=== PATIENT | female | born 1985 | race Hispanic/Latino ===

== ENCOUNTER 2017-01-28 15:09 | Emergency (ER) | payer BC ==
[2017-01-28] MEDS ORDERED: Triamcinolone Acetonide 40 MG/ML 1 ML MDV ONE ×3 (16:17→17:15)
[2017-01-28] MEDS ORDERED: Lidocaine 2% 5 ML SDV ONE ×2 (17:15)
[2017-01-28] MEDS ORDERED: Bupivacaine 0.5% 10 ML SDV ONE ×2 (17:15)
[2017-01-28 18:41] VITALS: BP 148/92
--- NOTE | 2017-01-29 11:37 | EDM.PDOC ---
ED HPI LOWER BACK PAIN/INJURY - General Chief Complaint: Back Pain or Injury Stated Complaint: BACK PAIN Time Seen by Provider: 01/28/17 18:00 Source: Reports: Patient History Limitations: Reports: No limitations - History of Present Illness INITIAL COMMENTS - FREE TEXT/NARRATIVE: This is a 31yo F here for severe lower back pain. Patient states it feels like a tight painful band across the lower back. Patient states she has had this pain before but this recent episode has been unbearable. Timing/Duration: Reports: Hour(s): Location: Reports: lower, paraspinal Quality: Reports: Same as previous episode Severity: severe Improves with: Reports: None Worsens with: Reports: None - Related Data Allergies/ADRs: Allergies Allergy/AdvReac Type Severity Reaction Status Date / Time No Known Allergies Allergy Verified 01/28/17 18:41 Home Meds: Home Meds NK [No Known Home Meds] 01/28/17 [History] Past Medical History - Past Health History Medical/Surgical History: Denies Medical/Surgical History Other OB/BYN History: no complications with 2 other pregnancies. Full term Social & Family History - Tobacco Use Smoking Status *Q: Former Smoker Years of Tobacco use: 16 Used Tobacco, but Quit: No Month Tobacco Last Used: 11/2014 Second Hand Smoke Exposure: No - Alcohol Use Days Per Week of Alcohol Use: 0 - Recreational Drug Use Recreational Drug Use: No ED ROS GENERAL - Review of Systems Review Of Systems: ROS reveals no pertinent complaints other than HPI. ED EXAM,LOWER BACK PAIN/INJURY - Physical Exam Exam: See Below Exam Limited By: No limitations General Appearance: alert, WD/WN, moderate distress Eye Exam: bilateral eye: PERRL Ears: normal external exam Nose: normal inspection Throat/Mouth: Normal inspection Respiratory/Chest: no respiratory distress, lungs clear Cardiovascular: normal peripheral pulses, regular rate, rhythm Back Exam: muscle spasm, paraspinal tenderness Neurological: alert, normal mood/affect, normal dorsiflexion, CN II-XII intact, normal plantar flexion, normal gait, normal reflexes, no motor/sensory deficits , oriented x 3 Psychiatric: normal affect, normal mood Skin Exam: Warm, Dry, Intact ED LACERATION/WOUND PROCEDURES - Additional/Other Procedure(s) Other (Free Text) Procedure(s): Trigger point injections done. 2-2-2-27 ga x2 were done in 2 locations of point tenderness - first located mid lower right of back and second at left lower hip area.No complications. Patient tolerated procedure well and noticed improved pain within minutes. Course - Vital Signs Last Recorded V/S: Last Vital Signs Temp 37.0 C 01/28/17 18:39 Pulse 92 01/28/17 18:39 Resp 18 01/28/17 18:39 BP 148/92 H 01/28/17 18:39 Pulse Ox 98 01/28/17 18:39 - Orders/Labs/Meds Meds: Medications Discontinued Medications Generic Name Dose Route Start Last Admin Trade Name Montserrat PRN Reason Stop Dose Admin Bupivacaine HCl 10 ml 01/28/17 17:15 Sensorcaine-Mpf 0.5% .ROUTE 01/28/17 17:16 .STK-MED ONE Bupivacaine HCl 10 ml 01/28/17 17:15 Sensorcaine-Mpf 0.5% .ROUTE 01/28/17 17:16 .STK-MED ONE Lidocaine 5 ml 01/28/17 17:15 Xylocaine-Mpf 2% .ROUTE 01/28/17 17:16 .STK-MED ONE Lidocaine 5 ml 01/28/17 17:15 Xylocaine-Mpf 2% .ROUTE 01/28/17 17:16 .STK-MED ONE Triamcinolone Acetonide Confirm 01/28/17 16:17 Kenalog-40 Administered 01/28/17 16:18 Dose 160 mg .ROUTE .STK-MED ONE Triamcinolone Acetonide 80 mg 01/28/17 17:15 Kenalog-40 .ROUTE 01/28/17 17:16 .STK-MED ONE Triamcinolone Acetonide 80 mg 01/28/17 17:15 Kenalog-40 .ROUTE 01/28/17 17:16 .STK-MED ONE Departure - Departure Time of Disposition: 20:00 Disposition: Home, Self-Care 01 Condition: good Clinical Impression: Lower back pain Qualifiers: Chronicity: acute Back pain laterality: bilateral Sciatica presence: without sciatica Qualified Code(s): M54.5 - Low back pain Referrals: PCP,Unknown [Primary Care Provider] - - Problem List Review Problem List Initiated/Reviewed/Updated: Yes - Assessment/Plan Plan: Counseled on f/u in clinic and recheck in clinic as needed.
== END 2017-01-28 18:40 | disposition home or self-care (01) ==
LOC: LB.ED 15:09
DX: M54.5 Low back pain (principal); Z87.891 Personal history of nicotine dependence
CPT/HCPCS: 20552; 99283; J3301

== ENCOUNTER 2017-06-02 10:36 | Emergency (ER) | payer BC ==
--- NOTE | 2017-06-02 11:26 | EDM.PDOC ---
ED HPI GENERAL MEDICAL PROBLEM - General Chief Complaint: General Stated Complaint: left sided pain Time Seen by Provider: 06/02/17 11:00 Source of Information: Reports: Patient History Limitations: Reports: No Limitations - History of Present Illness INITIAL COMMENTS - FREE TEXT/NARRATIVE: According to patient she has been having pain in the left side of the abdomen for since last thursday. Pain is dull achy type and is asoo with movement of the back, twisting or bending.Pain rated around 4-5/10. Pain has got better slightly, but has not resolved. No fever or chills, No nausea or vomiting, No pain or bloating of the abdomen. No diarrhea or constipation. No dyspepsia symptoms.She has a normal bowel movement today. Apparently week ago, it started after they made a quick 3 days trip to [place] and back. There was no trauma, but she was sitting in the car for long hrs. Duration: Week(s): (1), Improving Location: Reports: Abdomen Quality: Reports: Dull Severity: Mild Improves with: Reports: Rest Worsens with: Reports: Movement Associated Symptoms: Denies: Confusion, Cough, Diaphoresis, Fever/Chills, Headaches, Nausea/Vomiting, Rash, Shortness of Breath, Weakness - Related Data Allergies Allergy/AdvReac Type Severity Reaction Status Date / Time No Known Allergies Allergy Verified 01/28/17 18:41 Home Meds: Home Meds NK [No Known Home Meds] 01/28/17 [History] Past Medical History - Past Health History Medical/Surgical History: Denies Medical/Surgical History Other OB/BYN History: no complications with 2 other pregnancies. Full term Social & Family History - Tobacco Use Smoking Status *Q: Former Smoker Years of Tobacco use: 16 Used Tobacco, but Quit: No Month Tobacco Last Used: 11/2014 Second Hand Smoke Exposure: No - Alcohol Use Days Per Week of Alcohol Use: 0 - Recreational Drug Use Recreational Drug Use: No ED ROS GENERAL - Review of Systems Review Of Systems: See Below Constitutional: Denies: Fever, Chills, Night Sweats, Diaphoresis HEENT: Denies: Rhinitis, Sinus Problem, Throat Pain, Throat Swelling Respiratory: Denies: Cough, Sputum Cardiovascular: Denies: Chest Pain, Lightheadedness GI/Abdominal: Reports: Abdominal Pain. Denies: Nausea, Vomiting : Denies: Dysuria, Frequency Musculoskeletal: Denies: Back Pain, Joint Pain, Joint Swelling, Muscle Stiffness Skin: Denies: Bruising, Pruritis, Rash ED EXAM, GENERAL - Physical Exam Exam: See Below Exam Limited By: No Limitations General Appearance: Alert, WD/WN, No Apparent Distress Eye Exam: Bilateral Eye: EOMI, PERRL Ears: Normal External Exam, Normal Canal, Hearing Grossly Normal, Normal TMs Ear Exam: Bilateral Ear: Auricle Normal, Canal Normal, TM normal Nose: Normal Inspection, Normal Mucosa, No Blood Throat/Mouth: Normal Inspection, Normal Lips, Normal Teeth, Normal Gums, Normal Oropharynx, Normal Voice, No Airway Compromise Head: Atraumatic, Normocephalic Neck: Normal Inspection, Supple, Non-Tender, Full Range of Motion Respiratory/Chest: No Respiratory Distress, Lungs Clear, Normal Breath Sounds, No Accessory Muscle Use, Chest Non-Tender Cardiovascular: Normal Peripheral Pulses, Regular Rate, Rhythm, No Edema, No Gallop, No JVD, No Murmur, No Rub GI/Abdominal: Normal Bowel Sounds, Soft, No Organomegaly, No Distention, No Abnormal Bruit, No Mass, Tender (Pt has mild tenderness to palaption along the left costal margin and also along the left ilaic crest. no swelling or brusing of the skin noted. noaml deep palpation of the abdomen.). No: Guarding, Rigid, Rebound Course - Vital Signs Text/Narrative:: Pt's CBC appears normal. She is tender along the left costal margin and left iliac crest, along the attachments of the abdominal wall muscles. Apparently it could be the strain to the abdominal muscles from her long quick trip to [place], which has strained the muscles. She does claim that pain is improving slightly. She does not have any signs or symptoms of acute abdomen. I have advised her intermittent heat to the lower chest and lower abdomen 2-3 times daily. Motrin 600-800mg 3 times daily. Avoid twisting or bending activity until the pain resolves. Followup in clinic if pain persist. Last Recorded V/S: Last Vital Signs Temp 98.2 F 06/02/17 11:33 Pulse 73 06/02/17 11:33 Resp 16 06/02/17 11:33 BP 122/70 06/02/17 11:33 Pulse Ox 100 06/02/17 11:33 - Orders/Labs/Meds Labs: Laboratory Tests 06/02/17 Range/Units 11:19 WBC 9.8 D (4.0-11.0) K/uL RBC 4.42 (3.80-5.80) M/uL Hgb 13.3 (11.5-16.5) g/dL Hct 40.0 (37.0-47.0) % MCV 91 (76-96) fL MCH 30.1 (27.0-32.0) pg MCHC 33.3 (31.0-35.0) g/dL RDW 13.1 (11.0-16.0) % Plt Count 248 (150-500) K/uL MPV 9.8 (6.0-10.0) fL Neut % (Auto) 72.6 H (45.0-70.0) % Lymph % (Auto) 20.6 (20.0-40.0) % Baxter % (Auto) 5.3 (3.0-10.0) % Eos % (Auto) 1.2 (1.0-5.0) % Baso % (Auto) 0.3 (0.0-0.5) % Neut # (Auto) 7.11 (2.00-7.50) K/uL Lymph # (Auto) 2.02 (1.50-4.00) K/uL Baxter # (Auto) 0.52 (0.20-0.80) K/uL Eos # (Auto) 0.12 (0.04-0.40) K/uL Baso # (Auto) 0.03 (0.02-0.10) K/uL Departure - Departure Time of Disposition: 12:00 Disposition: Home, Self-Care 01 Condition: Good Clinical Impression: Abdominal wall pain in left flank - Discharge Information Referrals: PCP,None [Primary Care Provider] - Forms: ED Department Discharge Additional Instructions: Pt reassured that this is abdominal wall pain form strain to the wall muscles. I have advised her intermittent heat to the lower chest and lower abdomen 2-3 times daily. Motrin 600-800mg 3 times daily. Avoid twisting or bending activity until the pain resolves. Followup in clinic if pain persist. - Problem List & Annotations (1) Abdominal wall pain in left flank SNOMED Code(s): 586521448 Code(s): R10.9 - UNSPECIFIED ABDOMINAL PAIN Status: Acute Current Visit: Yes - Problem List Review Problem List Initiated/Reviewed/Updated: Yes - Assessment/Plan Assessment:: Left sided abdominal wall pain Plan: Pt's CBC appears normal. She is tender along the left costal margin and left iliac crest, along the attachments of the abdominal wall muscles. Apparently it could be the strain to the abdominal muscles from her long quick trip to [place], which has strained the muscles. She does claim that pain is improving slightly. She does not have any signs or symptoms of acute abdomen. I have advised her intermittent heat to the lower chest and lower abdomen 2-3 times daily. Motrin 600-800mg 3 times daily. Avoid twisting or bending activity until the pain resolves. Followup in clinic if pain persist.
[2017-06-02 11:35] VITALS: BP 122/70
== END 2017-06-02 12:02 | disposition home or self-care (01) ==
LOC: LB.ED 10:36
DX: R10.9 Unspecified abdominal pain (principal); Z87.891 Personal history of nicotine dependence
CPT/HCPCS: 36415; 85025; 99284

== ENCOUNTER 2017-09-23 19:42 | Emergency (ER) | payer BC ==
[2017-09-23 20:09] VITALS: BP 131/92
[2017-09-23] MEDS ORDERED: Cyclobenzaprine 10 MG Tab ONE (20:10)
[2017-09-23] MEDS ORDERED: Ketorolac 60 MG/2 ML SDV IM ONE (20:16)
[2017-09-23] MEDS ORDERED: Ketorolac 60 MG/2 ML SDV ONE (20:19)
--- NOTE | 2017-09-23 20:30 | EDM.PDOC ---
ED HPI GENERAL MEDICAL PROBLEM - General Chief Complaint: General Stated Complaint: PAIN Time Seen by Provider: 09/23/17 20:05 Source of Information: Reports: Patient History Limitations: Reports: No Limitations - History of Present Illness INITIAL COMMENTS - FREE TEXT/NARRATIVE: According to patient she has been having whole body pain since today evening. Pain is dull achy type and hurts to deep touch too. No tingling or numbness. No nausea or vomiting. Pt claims she generally take one tablet of flexeril and sometimes pain resolves, but today it did not resolve and hence she came into emergency room. No fever or chills. No URI symptoms. Pt claims she does have chronic pain in her muscles and body for a while. She has been worked for this by Dr. Barkley and she has also seen Dr. Roy the neurologist at [facility]. Had MRI of the brain and back which are normal. Severity: Moderate Improves with: Reports: None Worsens with: Reports: None Associated Symptoms: Reports: Headaches. Denies: Confusion, Chest Pain, Cough, Diaphoresis, Fever/Chills, Malaise, Nausea/Vomiting, Rash, Seizure, Shortness of Breath, Weakness Headache Pain Score (Numeric/FACES): 8 Lower Extremities Pain Score (Numeric/FACES): 8 - Related Data Allergies Allergy/AdvReac Type Severity Reaction Status Date / Time bee venom protein (honey bee) Allergy Anaphylactic Verified 09/23/17 20:05 Shock cat dander Allergy Anaphylactic Verified 09/23/17 20:05 Shock Home Meds: Home Meds Acetaminophen/HYDROcodone [[place] 325-5 MG] 1 tab PO Q6H PRN 09/23/17 [History] Cyclobenzaprine [Flexeril] 10 mg PO DAILY PRN 09/23/17 [History] Omeprazole 20 mg PO ACBREAKFAST 09/23/17 [History] Past Medical History - Past Health History Medical/Surgical History: Denies Medical/Surgical History Other OB/BYN History: no complications with 2 other pregnancies. Full term Social & Family History - Tobacco Use Smoking Status *Q: Former Smoker Years of Tobacco use: 16 Packs/Tins Daily: 0 Used Tobacco, but Quit: No Month Tobacco Last Used: 11/2014 Second Hand Smoke Exposure: No - Caffeine Use Caffeine Use: Reports: Coffee, Energy Drinks - Alcohol Use Days Per Week of Alcohol Use: 0 - Recreational Drug Use Recreational Drug Use: No ED ROS GENERAL - Review of Systems Review Of Systems: See Below Constitutional: Denies: Fever, Chills, Malaise, Weakness HEENT: Denies: Rhinitis, Sinus Problem, Throat Pain Respiratory: Denies: Cough, Sputum Cardiovascular: Denies: Chest Pain, Lightheadedness GI/Abdominal: Denies: Abdominal Pain, Nausea, Vomiting Musculoskeletal: Reports: Arm Pain, Back Pain, Hand Pain, Leg Pain, Foot Pain, Muscle Pain. Denies: Joint Pain, Joint Swelling, Muscle Stiffness Skin: Denies: Bruising, Pruritis, Rash Neurological: Denies: Confusion, Dizziness, Headache, Numbness, Syncope, Tingling ED EXAM, GENERAL - Physical Exam Exam: See Below Exam Limited By: No Limitations General Appearance: Alert, WD/WN, No Apparent Distress Eye Exam: Bilateral Eye: EOMI, PERRL Ears: Normal External Exam Ear Exam: Bilateral Ear: Auricle Normal, Canal Normal, TM normal Nose: Normal Inspection, Normal Mucosa, No Blood Throat/Mouth: Normal Inspection, Normal Lips, Normal Teeth, Normal Gums, Normal Oropharynx, Normal Voice, No Airway Compromise Head: Atraumatic, Normocephalic Neck: Normal Inspection, Supple, Non-Tender, Full Range of Motion Respiratory/Chest: No Respiratory Distress, Lungs Clear, Normal Breath Sounds, No Accessory Muscle Use, Chest Non-Tender Cardiovascular: Normal Peripheral Pulses, Regular Rate, Rhythm, No Edema, No Gallop, No JVD, No Murmur, No Rub GI/Abdominal: Normal Bowel Sounds, Soft, Non-Tender, No Organomegaly, No Distention, No Abnormal Bruit, No Mass Back Exam: Normal Inspection, Full Range of Motion. No: Paraspinal Tenderness, Vertebral Tenderness Extremities: Normal Inspection, Normal Range of Motion, Non-Tender, Normal Capillary Refill, No Pedal Edema Neurological: Alert, Oriented, CN II-XII Intact, Normal Cognition, Normal Gait, Normal Reflexes, No Motor/Sensory Deficits, Other (Pt has increased pain response to deep touch all over the body.) Skin Exam: Warm, Intact Course - Vital Signs Text/Narrative:: Pt appears like she has chronic muscle pain or soft tissue pain, as she hurts to deep palpation of the soft tissue of the extremities and the trunk. no skin warmth. Her CBC is normal. She has been to Neurologist and has had MRI of the back and head which were normal. She did receive toradol 60mg in the emergency room. Advised to go home and rest. She was given flexeril from the emergency room to use at bedtime as needed for her muscle aches. Advised massage and heat to the area of pain. She claims she has made appointment with Neurologist at [facility] coming up. Advised to keep the appointment.Also advised to followup with Dr. Barkley next week. Last Recorded V/S: Last Vital Signs Temp 98.6 F 09/23/17 20:00 Pulse 113 H 09/23/17 20:00 Resp 20 09/23/17 20:00 BP 131/92 H 09/23/17 20:00 Pulse Ox 98 09/23/17 20:00 - Orders/Labs/Meds Orders: Active Orders 24 hr Category Date Time Status CBC WITH AUTO DIFF [HEME] Stat Lab 09/23/17 20:10 Ordered Ketorolac [Toradol] Med 09/23/17 20:16 Once 60 mg IM ONETIME ONE Departure - Departure Time of Disposition: 20:50 Disposition: Home, Self-Care 01 Condition: Fair Clinical Impression: Myalgia - Discharge Information Referrals: PCP,None [Primary Care Provider] - - Problem List & Annotations (1) Myalgia SNOMED Code(s): 15998646 Code(s): M79.1 - MYALGIA Status: Acute Current Visit: Yes - Problem List Review Problem List Initiated/Reviewed/Updated: Yes - My Orders Last 24 Hours: My Active Orders 09/23/17 20:10 CBC WITH AUTO DIFF [HEME] Stat 09/23/17 20:16 Ketorolac [Toradol] 60 mg IM ONETIME ONE - Assessment/Plan Last 24 Hours: My Active Orders 09/23/17 20:10 CBC WITH AUTO DIFF [HEME] Stat 09/23/17 20:16 Ketorolac [Toradol] 60 mg IM ONETIME ONE Assessment:: Chronic myalgia Plan: Pt appears like she has chronic muscle pain or soft tissue pain, as she hurts to deep palpation of the soft tissue of the extremities and the trunk. no skin warmth. Her CBC is normal. She has been to Neurologist and has had MRI of the back and head which were normal. She did receive toradol 60mg in the emergency room. Advised to go home and rest. She was given flexeril from the emergency room to use at bedtime as needed for her muscle aches. Advised massage and heat to the area of pain. She claims she has made appointment with Neurologist at [facility] coming up. Advised to keep the appointment.Also advised to followup with Dr. Barkley next week.
== END 2017-09-23 20:47 | disposition home or self-care (01) ==
LOC: LB.ED 19:42
DX: M79.1 Myalgia (principal); Z91.030 Bee allergy status; Z87.891 Personal history of nicotine dependence
CPT/HCPCS: 36415; 85025; 96372; 99284; A9270; J1885

== ENCOUNTER 2019-06-19 21:25 | Emergency (ER) | payer MEDICAID ==
--- NOTE | 2019-06-19 22:18 | EDM.PDOC ---
ED HPI GENERAL MEDICAL PROBLEM - General Chief Complaint: General Stated Complaint: toothpain Time Seen by Provider: 06/19/19 21:30 Source of Information: Reports: Patient History Limitations: Reports: No Limitations - History of Present Illness INITIAL COMMENTS - FREE TEXT/NARRATIVE: According to patient she got her tooth pulled on thursday. Since then she has been having chest pain on and off. The chest pain is sharp and last for few minutes . But hurts to take deep breaths. No fever or chills. She has been having nasal congestion. No wheezing or shortness of breath. She discussed with her colleague at work, who told here to go to emergency room and have it checked out. No nausea or vomiting. No sweating. No radiation of pain. Onset Date: 06/17/19 Duration: Intermittent Location: Reports: Chest Quality: Reports: Ache Severity: Mild Worsens with: Reports: Breathing Associated Symptoms: Denies: Confusion, Chest Pain, Cough, Diaphoresis, Fever/ Chills, Headaches, Nausea/Vomiting, Rash, Seizure, Shortness of Breath, Syncope , Weakness - Related Data Allergies Allergy/AdvReac Type Severity Reaction Status Date / Time bee venom protein (honey bee) Allergy Anaphylactic Verified 09/23/17 20:05 Shock cat dander Allergy Anaphylactic Verified 09/23/17 20:05 Shock Home Meds: Home Meds Acetaminophen/HYDROcodone [[place] 325-5 MG] 1 tab PO Q6H PRN 09/23/17 [History] Cholecalciferol (Vitamin D3) [Vitamin D3] 5,000 unit PO DAILY 09/23/17 [History] Cyclobenzaprine [Flexeril] 10 mg PO DAILY PRN 09/23/17 [History] Omeprazole 20 mg PO ACBREAKFAST 09/23/17 [History] Phentermine HCl 37.5 mg PO DAILY 09/23/17 [History] Past Medical History - Past Health History Medical/Surgical History: Denies Medical/Surgical History HEENT History: Reports: None Gastrointestinal History: Reports: GERD IMPROVEMENT RN History: Reports: Endometriosis, Other IMPROVEMENT RN History: no complications with 2 other pregnancies. Full term Psychiatric History: Reports: Depression Endocrine/Metabolic History: Reports: Obesity/BMI 30+ - Past Surgical History HEENT Surgical History: Reports: Tonsillectomy Endocrine Surgical History: Reports: None Social & Family History - Caffeine Use Caffeine Use: Reports: Coffee, Energy Drinks ED ROS GENERAL - Review of Systems Review Of Systems: See Below Constitutional: Denies: Fever, Chills, Weakness HEENT: Reports: Rhinitis. Denies: Ear Pain, Throat Pain Respiratory: Reports: Pleuritic Chest Pain. Denies: Shortness of Breath, Cough , Sputum Cardiovascular: Denies: Chest Pain, Lightheadedness GI/Abdominal: Denies: Abdominal Pain, Nausea, Vomiting : Denies: Dysuria, Frequency Musculoskeletal: Denies: Joint Pain, Joint Swelling Skin: Denies: Bruising, Pruritis, Rash Neurological: Denies: Confusion, Dizziness, Headache, Numbness, Tingling ED EXAM, GENERAL - Physical Exam Exam: See Below Exam Limited By: No Limitations General Appearance: Alert, WD/WN, No Apparent Distress Ears: Normal External Exam, Normal Canal, Hearing Grossly Normal, Normal TMs Ear Exam: Bilateral Ear: Auricle Normal, Canal Normal, TM normal Nose: Normal Inspection, No Blood, Nasal Drainage (clear) Throat/Mouth: Normal Inspection, Normal Lips, Normal Teeth, Normal Gums, Normal Oropharynx, Normal Voice, No Airway Compromise Head: Atraumatic, Normocephalic Neck: Normal Inspection, Supple, Non-Tender, Full Range of Motion Respiratory/Chest: No Respiratory Distress, Lungs Clear, Normal Breath Sounds, No Accessory Muscle Use, Chest Non-Tender Cardiovascular: Normal Peripheral Pulses, Regular Rate, Rhythm, No Edema, No Gallop, No JVD, No Murmur, No Rub Extremities: Normal Inspection, Normal Range of Motion, Non-Tender, Normal Capillary Refill, No Pedal Edema Neurological: Alert, Oriented, CN II-XII Intact, Normal Cognition, Normal Gait, Normal Reflexes, No Motor/Sensory Deficits Course - Vital Signs Text/Narrative:: Pt has 3 days history of chest pain,which appear like pleuritic chest pain. Also she has mild nasal congestion. Her CBC is normal and her chest X-ray iw normal. Pt reassured that she has developed viral pleurisy. Advised zyrtec 10mg daily and motrin 600mg 3 times daily for 5 days for her pleurisy. Followup in clinic if symptoms worsen. - Orders/Labs/Meds Orders: Active Orders 24 hr Category Date Time Status Chest 2V [CR] Stat Exams 06/19/19 21:26 Taken Labs: Laboratory Tests 06/19/19 Range/Units 21:35 WBC 8.0 D (4.0-11.0) K/uL RBC 4.32 (3.80-5.80) M/uL Hgb 13.3 (11.5-16.5) g/dL Hct 39.0 (37.0-47.0) % MCV 90 (76-96) fL MCH 30.8 (27.0-32.0) pg MCHC 34.1 (31.0-35.0) g/dL RDW 13.1 (11.0-16.0) % Plt Count 243 (150-500) K/uL MPV 9.6 (6.0-10.0) fL Neut % (Auto) 64.7 (45.0-70.0) % Lymph % (Auto) 27.5 (20.0-40.0) % Ellis % (Auto) 5.5 (3.0-10.0) % Eos % (Auto) 2.0 (1.0-5.0) % Baso % (Auto) 0.3 (0.0-0.5) % Neut # (Auto) 5.16 (2.00-7.50) K/uL Lymph # (Auto) 2.19 (1.50-4.00) K/uL Ellis # (Auto) 0.44 (0.20-0.80) K/uL Eos # (Auto) 0.16 (0.04-0.40) K/uL Baso # (Auto) 0.02 (0.02-0.10) K/uL Departure - Departure Time of Disposition: 22:00 Disposition: Home, Self-Care 01 Condition: Fair Clinical Impression: Pleurisy - Discharge Information *PRESCRIPTION DRUG MONITORING PROGRAM REVIEWED*: Not Applicable *COPY OF PRESCRIPTION DRUG MONITORING REPORT IN PATIENT JUVENT[place]: Not Applicable Instructions: Pleurisy, [id number] Forms: ED Department Discharge Additional Instructions: May take 600mg Ibuprofen every 8 hours as needed for pain. Diet and activity as tolerated. Follow up in clinic as needed. Call with any questions. - Problem List & Annotations (1) Pleurisy SNOMED Code(s): 243562121 Code(s): R09.1 - PLEURISY Status: Acute - Problem List Review Problem List Initiated/Reviewed/Updated: Yes - My Orders Last 24 Hours: My Active Orders 06/19/19 21:26 Chest 2V [CR] Stat - Assessment/Plan Last 24 Hours: My Active Orders 06/19/19 21:26 Chest 2V [CR] Stat Assessment:: Pleurisy Plan: Pt has 3 days history of chest pain,which appear like pleuritic chest pain. Also she has mild nasal congestion. Her CBC is normal and her chest X-ray iw normal. Pt reassured that she has developed viral pleurisy. Advised zyrtec 10mg daily and motrin 600mg 3 times daily for 5 days for her pleurisy. Followup in clinic if symptoms worsen.
[2019-06-19 23:36] VITALS: BP 145/80; PULSE 72
--- NOTE | 2019-06-20 05:33 | CR ---
DATE OF SERVICE: 06/19/19 CLINICAL DATA: Chest pain. PA AND LATERAL CHEST: Comparison is made to a prior exam dated 12/15/18. The patient has taken a poor inspiration. The heart size is normal. The lungs are clear. No pneumothorax. No pleural effusions. No evidence of acute intrathoracic disease. [id number] MTDD
== END 2019-06-19 22:00 | disposition home or self-care (01) ==
LOC: LB.ED 21:25
DX: R09.1 Pleurisy (principal); K21.9 Gastro-esophageal reflux disease without esophagitis; E66.9 Obesity, unspecified; Z91.09 Other allergy status, other than to drugs and biological substances; Z79.899 Other long term (current) drug therapy; Z98.890 Other specified postprocedural states; Z91.030 Bee allergy status
CPT/HCPCS: 36415; 71046; 85025; 99284-25

== ENCOUNTER 2020-12-25 19:46 | Emergency (ER) | payer MEDICAID ==
[2020-12-25 20:12] VITALS: PULSE 90
[2020-12-25] MEDS: Ketorolac 60 MG/2 ML SDV IM ONE (20:39)
[2020-12-25 21:11] VITALS: BP 159/92
--- NOTE | 2020-12-26 07:04 | ER ---
HISTORY OF PRESENT ILLNESS: A 35-year-old lady here with complaints of lower abdominal pain that started late this afternoon while she was at work. She tells me it felt like a ripping sensation and she has had some vaginal bleeding since. The patient tells me that this reminds her when she had problems with endometriosis a few years ago. She has been using an IUD for the last 4 years or so and it has really helped those symptoms. She tells me that she did take ibuprofen about 4-1/2 hours ago and it helped some with the pain, but she still rates her pain as moderate. She has not been sick. She has not had any falls or injuries. She states she has been using some pads to help with the bleeding. She denies any problems with nausea or vomiting. OBJECTIVE: GENERAL APPEARANCE: The patient is awake and alert. She is on her phone when I came into the emergency room. No respiratory distress. VITAL SIGNS: Reviewed. Blood pressure 154/104. She is afebrile. Pulse is 90. LUNGS: Clear. There is no CVA tenderness with percussion. ABDOMEN: Soft. There is tenderness without guarding with palpation involving the lower abdomen, centrally located, as well as the lower right quadrant. The bowel sounds are present but hypoactive. SKIN: Warm and dry. LAB AND X-RAY STUDIES: UA is obtained showing slightly cloudy, small amount of proteinuria and ketonuria and just an occasional bacteria seen. DIAGNOSIS: Dysfunctional uterine bleeding. TREATMENT PLAN: The patient was given Toradol 60 mg IM, and after watching her for about 30 minutes, the pain was improving. She is smiling and laughing and still quite active on her phone. At this point, I will discharge the patient home. We will give her Toradol tablets to take 1 tablet every 6 to 8 hours. She can alternate with 2 extra-strength Tylenol every 3 to 4 hours. I gave her slip to be off work tomorrow and I wanted to have the patient set up for lower abdominal and transpelvic ultrasound as soon as possible. Hopefully, this can be done on . I also want the patient to follow up with her local provider in the clinic as soon as possible, hopefully, by the end of the week. CRS/MODL /[id number] VINNY
== END 2020-12-25 21:15 | disposition home or self-care (01) ==
LOC: LB.ED 19:46
DX: N93.8 Other specified abnormal uterine and vaginal bleeding (principal)
CPT/HCPCS: 81001; 96372; 99284; J1885

== ENCOUNTER 2021-04-15 12:03 | Emergency (ER) | payer MEDICAID ==
[2021-04-15] MEDS ORDERED: Acetaminophen/HYDROcodone 325-5 MG Tab ONE ×2 (12:06→12:50)
[2021-04-15] MEDS ORDERED: Acetaminophen/HYDROcodone 325-5 MG Tab PO ONE (12:36)
[2021-04-15] MEDS ORDERED: Acetaminophen/HYDROcodone 325-10 MG Tab ONE (12:48)
[2021-04-15] MEDS: Ondansetron 4 MG Tab.DIS PO ONE (14:18)
--- NOTE | 2021-04-15 14:20 | EDM.PDOC ---
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 Denies any radiation of the pain into legs, numbness/tingling, SOB, CP, fever, n/v/d. Middle Back Pain Score (Numeric/FACES): 6 - Related Data Allergies Allergy/AdvReac Type Severity Reaction Status Date / Time bee venom protein (honey bee) Allergy Anaphylactic Verified 04/15/21 12:50 Shock cat dander Allergy Anaphylactic Verified 04/15/21 12:50 Shock Home Meds: Home Meds EPINEPHrine [Epinephrine] 0.3 mg IM ASDIRECTED 06/19/19 [History] Past Medical History - Past Health History Medical/Surgical History: Denies Medical/Surgical History HEENT History: Reports: None Gastrointestinal History: Reports: GERD ACCESS CLERK History: Reports: Endometriosis, Other ACCESS CLERK History: no complications with 2 other pregnancies. Full term Other Musculoskeletal History: possibly early onset arthritis Psychiatric History: Reports: Anxiety, Depression Endocrine/Metabolic History: Reports: Obesity/BMI 30+ - Past Surgical History HEENT Surgical History: Reports: Tonsillectomy Endocrine Surgical History: Reports: None Social & Family History - Family History Family Medical History: No Pertinent Family History - Tobacco Use Tobacco Use Status *Q: Current Every Day Tobacco User Years of Tobacco use: 15 Packs/Tins Daily: 0.5 - Caffeine Use Caffeine Use: Reports: Coffee - Recreational Drug Use Recreational Drug Use: No ED ROS GENERAL - Review of Systems Review Of Systems: See Below Constitutional: Reports: No Symptoms HEENT: Reports: No Symptoms Respiratory: Reports: No Symptoms Cardiovascular: Reports: No Symptoms Endocrine: Reports: No Symptoms GI/Abdominal: Reports: No Symptoms : Reports: No Symptoms Musculoskeletal: Reports: Back Pain Skin: Reports: No Symptoms Neurological: Reports: No Symptoms Psychiatric: Reports: No Symptoms Hematologic/Lymphatic: Reports: No Symptoms Immunologic: Reports: No Symptoms ED EXAM, GENERAL - Physical Exam Exam: See Below Exam Limited By: No Limitations General Appearance: Alert, Mild Distress Eye Exam: Bilateral Eye: Normal Inspection Ears: Normal External Exam, Hearing Grossly Normal Nose: Normal Inspection, No Blood Throat/Mouth: Normal Inspection, Normal Lips, Normal Teeth, Normal Gums, Normal Oropharynx, Normal Voice, No Airway Compromise Head: Atraumatic Neck: Normal Inspection, Non-Tender, Full Range of Motion Respiratory/Chest: No Respiratory Distress, Lungs Clear, Normal Breath Sounds, No Accessory Muscle Use Cardiovascular: Normal Peripheral Pulses, Regular Rate, Rhythm, No Edema, No JVD, No Murmur Peripheral Pulses: 3+: Brachial (L), Brachial (R), Posterior Tibial (L), Posterior Tibial (R), Dorsalis Pedis (L), Dorsalis Pedis (R) GI/Abdominal: Soft, Non-Tender Back Exam: Normal Inspection, Decreased Range of Motion, Muscle Spasm, Paraspinal Tenderness, Other (mid back with palpation ) Extremities: Normal Inspection, Normal Range of Motion, Non-Tender, No Pedal Edema, Normal Capillary Refill Neurological: Alert, Oriented, Normal Cognition, Normal Gait, No Motor/Sensory Deficits Psychiatric: Normal Affect, Normal Mood Skin Exam: Warm, Dry, Intact, Normal Color, No Rash Lymphatic: No Adenopathy Course - Vital Signs Last Recorded V/S: Last Vital Signs Temp Pulse Resp 18 04/15/21 12:51 BP Pulse Ox 98 04/15/21 12:51 - Orders/Labs/Meds Orders: Active Orders 24 hr Category Date Time Status Thoracolumbar 2V [CR] Stat Exams 04/15/21 12:38 Taken Meds: Medications Discontinued Medications Generic Name Dose Route Start Last Admin Trade Name [place] PRN Reason Stop Dose Admin Hydrocodone Bitart/Acetaminophen 2 tab 04/15/21 12:36 04/15/21 12:40 Acetaminophen/Hydrocodone 325-5 Mg Tab PO 04/15/21 12:37 2 tab ONETIME ONE Administration Hydrocodone Bitart/Acetaminophen Confirm 04/15/21 12:48 04/15/21 12:42 Acetaminophen/Hydrocodone 325-10 Mg Tab Administered 04/15/21 12:49 Not Given Dose 2 tab .ROUTE .STK-MED ONE Hydrocodone Bitart/Acetaminophen Confirm 04/15/21 12:50 Acetaminophen/Hydrocodone 325-5 Mg Tab Administered 04/15/21 12:51 Dose 2 tab .ROUTE .STK-MED ONE Departure - Departure Time of Disposition: 14:07 Disposition: Home, Self-Care 01 Condition: Good Clinical Impression: Mid back pain - Discharge Information *PRESCRIPTION DRUG MONITORING PROGRAM REVIEWED*: Not Applicable *COPY OF PRESCRIPTION DRUG MONITORING REPORT IN PATIENT [place]: Not Applicable Instructions: Acute Back Pain, Adult Referrals: PCP,None [Primary Care Provider] - Additional Instructions: Start taking 600mg ibuprofen and/or 650 mg of tylenol with food every 6 hours. Ice the painful area for 15-20 minutes every 3-4 hours for the first 24 hours, after the pina 24 hours, you may use heat to the area. Return to ED for any increased or new concerning symptoms. Follow up with clinic in 1 week if not improving. Sepsis Event Note (ED) - Evaluation Sepsis Screening Result: No Definite Risk - Focused Exam Vital Signs: Vital Signs Resp Pulse Ox 04/15/21 12:51 18 98 - My Orders Last 24 Hours: My Active Orders 04/15/21 12:38 Thoracolumbar 2V [CR] Stat - Assessment/Plan Last 24 Hours: My Active Orders 04/15/21 12:38 Thoracolumbar 2V [CR] Stat Plan: Patient will follow up in clinic next week if the pain persists. Verbalized understanding of DC instructions, all questions were answered prior to DC
[2021-04-15] MEDS ORDERED: Ondansetron 4 MG Tab.DIS ONE (14:27)
--- NOTE | 2021-04-15 18:35 | CR ---
DATE OF SERVICE: 04/15/2021 CLINICAL DATA: Injury. THORACOLUMBAR SPINE: Comparison is made to a prior lumbar spine dated 05/17/2019. The vertebral bodies are of average height and in good alignment. No acute fracture or dislocation. There are disc margin spurs at multiple levels with mild disc space narrowing at multiple levels. There is grade 1 anterolisthesis of L5 on S1. No other significant findings. [id number] [facility]
== END 2021-04-15 14:20 | disposition home or self-care (01) ==
LOC: LB.ED 12:03
DX: M54.6 Pain in thoracic spine (principal); E66.9 Obesity, unspecified; Z72.0 Tobacco use; Z68.42 Body mass index [BMI] 45.0-49.9, adult; Z91.030 Bee allergy status; Z91.048 Other nonmedicinal substance allergy status
CPT/HCPCS: 72080; 99283; A9270-GY

== ENCOUNTER 2023-07-31 17:52 | Emergency (ER) | payer MEDICAID ==
[2023-07-31] MEDS ORDERED: diazePAM 5 MG/ML MDV IM ONE (18:06)
[2023-07-31] MEDS ORDERED: Orphenadrine 60 MG/2 ML Inj IM ONE (18:41)
[2023-07-31] MEDS ORDERED: Orphenadrine 60 MG/2 ML Inj ONE (18:49)
[2023-07-31 19:08] LABS: APPEARANCE,URINE CLEAR (CLEAR); BILIRUBIN,URINE SMALL (NEGATIVE); COLOR,URINE YELLOW; GLUCOSE,URINE NEGATIVE (NEGATIVE); KETONES,URINE TRACE mg/dL (NEGATIVE); LEUKOCYTE ESTERASE,URINE NEGATIVE (NEGATIVE); NITRITE,URINE NEGATIVE (NEGATIVE); OCCULT BLOOD,URINE NEGATIVE (NEGATIVE); PH,URINE 5.5 (5.0-8.0); PROTEIN,URINE TRACE mg/dL (NEGATIVE); UROBILINOGEN,URINE 0.2 E.U./dL (0.2-1.0)
[2023-07-31 19:12] LABS: RBC,URINE 0-5 /HPF; SQUAMOUS EPITHELIAL CELLS,UR MANY /HPF; WBC,URINE 0-5 /HPF
[2023-07-31 21:17] VITALS: BP 149/98; PULSE 96
== END 2023-07-31 19:40 | disposition home or self-care (01) ==
LOC: LB.ED 17:52
DX: M54.6 Pain in thoracic spine (principal); E66.9 Obesity, unspecified; Z68.42 Body mass index [BMI] 45.0-49.9, adult; Z91.018 Allergy to other foods; Z91.048 Other nonmedicinal substance allergy status
CPT/HCPCS: 81001; 96372; 99283; J2360; J3360

== ENCOUNTER 2023-12-18 09:41 | Emergency (ER) | payer MEDICAID ==
[2023-12-18] MEDS: Nitroglycerin 0.4 MG Tab.SL SL PRN ×2 (10:12→10:28)
[2023-12-18] MEDS ORDERED: Magnesium Sulfate/Water 2 GM in Premix Bag 1 BAG IV ONE (10:17)
[2023-12-18] MEDS ORDERED: Magnesium Sulfate/Water 50 ML ONE (10:27)
[2023-12-18 10:28] LABS: BASOPHILS ABSOLUTE AUTO 0.01 K/uL (0.02-0.10); BASOPHILS PERCENT AUTO 0.2 % (0.0-0.5); EOSINOPHILS ABSOLUTE AUTO 0.08 K/uL (0.04-0.40); EOSINOPHILS PERCENT AUTO 1.7 % (1.0-5.0); HEMATOCRIT 39.5 % (37.0-47.0); HEMOGLOBIN 13.2 g/dL (11.5-16.5); LYMPHOCYTES ABSOLUTE AUTO 1.49 K/uL (1.50-4.00); LYMPHOCYTES PERCENT AUTO 31.7 % (20.0-40.0); MEAN CORPUSCULAR HEMOGLOBIN 30.1 pg (27.0-32.0); MEAN CORPUSCULAR HGB CONC 33.4 g/dL (31.0-35.0); MEAN CORPUSCULAR VOLUME 90 fL (76-96); MEAN PLATELET VOLUME 9.6 fL (6.0-10.0); MONOCYTES ABSOLUTE AUTO 0.32 K/uL (0.20-0.80); MONOCYTES PERCENT AUTO 6.8 % (3.0-10.0); NEUTROPHILS PERCENT AUTO 59.6 % (45.0-70.0); PLATELET COUNT,PLT 202 K/uL (150-500); RED BLOOD CELL COUNT 4.39 M/uL (3.80-5.80); RED CELL DISTRIBUTION WIDTH 13.4 % (11.0-16.0); WHITE BLOOD CELL COUNT,WBC 4.7 K/uL (4.0-11.0)
[2023-12-18 10:53] LABS: MAGNESIUM 1.8 mg/dL (1.8-2.4)
[2023-12-18 10:59] LABS: TROPONIN I HIGH SENSITIVITY 121.9 pg/ml (<=60.4)
[2023-12-18] MEDS ORDERED: Aspirin 81 MG Tab.Chew PO ONE (11:08)
[2023-12-18] MEDS ORDERED: Heparin Sodium 5,000 Units/ML Vial IVPUSH PRN (11:09)
[2023-12-18 11:14] LABS: A/G RATIO 1.1 (0.8-2.0); ALANINE AMINOTRANSFERASE,ALT 46 U/L (12-78); ALBUMIN 3.2 g/dL (3.4-5.0); ALKALINE PHOSPHATASE 68 U/L (46-116); ANION GAP 13.3 mmol/L (5.0-15.0); ASPARTATE AMNIOTRANSFERASE,AST 31 U/L (15-37); BILIRUBIN TOTAL 0.5 mg/dL (0.0-1.0); BLOOD UREA NITROGEN,BUN 9 mg/dL (8-26); BUN/CREATININE RATIO 12.2 (6-25); CALCIUM 8.1 mg/dL (8.5-10.1); CARBON DIOXIDE,CO2 25.2 mmol/L (21.0-32.0); CHLORIDE,CL 103 mmol/L (98-107); CREATININE 0.74 mg/dL (0.55-1.02); ESTIMATED GFR 105 mL/min (>60); GLUCOSE RANDOM 99 mg/dL (74-100); POTASSIUM,K 3.5 mmol/L (3.5-5.1); PROTEIN TOTAL,TP 6.1 g/dL (6.4-8.2); SODIUM,NA 138 mmol/L (136-145)
[2023-12-18] MEDS ORDERED: Heparin Sodium/D5W 25,000 UNITS/500 ML BAG IV SCH (11:15)
[2023-12-18] MEDS ORDERED: Heparin Sodium 1,000 Units/ML 10 ML MDV SUBCUT SCH (11:30)
[2023-12-18] MEDS ORDERED: Labetalol 100 MG/20 ML MDV ONE (11:43)
[2023-12-18] MEDS ORDERED: Labetalol 100 MG/20 ML MDV IVPUSH ONE (11:44)
[2023-12-18 11:45] LABS: PTT,PARTIAL THROMBOPLSTIN TIME 26.7 SECONDS (24.4-33.2)
[2023-12-18 11:55] LABS: PROTHROMBIN TIME 10.4 sec (9.0-11.5)
[2023-12-18 12:30] LABS: APPEARANCE,URINE CLEAR (CLEAR); BILIRUBIN,URINE NEGATIVE (NEGATIVE); COLOR,URINE YELLOW; GLUCOSE,URINE NEGATIVE (NEGATIVE); KETONES,URINE NEGATIVE (NEGATIVE); LEUKOCYTE ESTERASE,URINE NEGATIVE (NEGATIVE); NITRITE,URINE NEGATIVE (NEGATIVE); OCCULT BLOOD,URINE NEGATIVE (NEGATIVE); PH,URINE 6.5 (5.0-8.0); PROTEIN,URINE 30 mg/dL (NEGATIVE); UROBILINOGEN,URINE 0.2 E.U./dL (0.2-1.0)
[2023-12-18 12:36] LABS: RBC,URINE 0-5 /HPF; WBC,URINE 0-5 /HPF
[2023-12-18 12:37] LABS: SQUAMOUS EPITHELIAL CELLS,UR FEW /HPF
[2023-12-18 17:47] VITALS: BP 173/97; PULSE 87
[2023-12-18] MEDS ORDERED: Sodium Chloride 0.9% 10 ML Syringe FLUSH PRN (18:32)
== END 2023-12-18 18:15 ==
LOC: LB.ED 09:41
DX: I21.4 Non-ST elevation (NSTEMI) myocardial infarction (principal); J45.909 Unspecified asthma, uncomplicated; Z91.048 Other nonmedicinal substance allergy status; Z91.030 Bee allergy status
CPT/HCPCS: 36415; 80053; 81001; 83735; 84484; 85025; 85610; 85730; 93005; 96365; 96366; 96367; 96375; 99285; A9270; J1644; J1921; J3475

== ENCOUNTER 2024-05-28 17:25 | Emergency (ER) | payer MEDICAID ==
[2024-05-28] MEDS: diazePAM 5 MG/ML MDV IM ONE (18:40)
[2024-05-28] MEDS: Orphenadrine 60 MG/2 ML Inj IM ONE (18:40)
[2024-05-28] MEDS: diazePAM 5 MG/ML MDV ONE (18:44)
[2024-05-28] MEDS: Orphenadrine 60 MG/2 ML Inj ONE ×2 (18:44→22:57)
[2024-05-28] MEDS: Morphine 4 MG/ML VIAL IM ONE (20:07)
[2024-05-28] MEDS: Morphine 4 MG/ML VIAL ONE (20:19)
[2024-05-28] MEDS: methylPREDNISolone Sodium Succinate 125 MG/2 ML SDV IVPUSH ONE (22:55)
[2024-05-28] MEDS: methylPREDNISolone Sodium Succinate 125 MG/2 ML SDV ONE (22:56)
[2024-05-28] MEDS: Orphenadrine 60 MG/2 ML Inj IV ONE (22:57)
[2024-05-28] MEDS ORDERED: traMADol 50 MG Tab ONE (23:00)
[2024-05-28] MEDS: Ketorolac 30 MG/ML SDV IVPUSH ONE (23:19)
[2024-05-29] MEDS: Ketorolac 30 MG/ML SDV ONE (02:50)
[2024-05-29 03:15] VITALS: BP 178/104; PULSE 91
== END 2024-05-29 00:50 | disposition home or self-care (01) ==
LOC: LB.ED 17:25
DX: M54.12 Radiculopathy, cervical region (principal); I10 Essential (primary) hypertension; E66.9 Obesity, unspecified; Z90.710 Acquired absence of both cervix and uterus; Z79.82 Long term (current) use of aspirin; Z79.899 Other long term (current) drug therapy; Z91.048 Other nonmedicinal substance allergy status; Z91.030 Bee allergy status; Z68.42 Body mass index [BMI] 45.0-49.9, adult
CPT/HCPCS: 72125; 73030-LT; 96365; 96372; 96375; 99283; 99284-25; A9270-GY; J1885; J2270; J2360; J2919; J3360; J3475

== ENCOUNTER 2025-02-12 14:22 | Emergency (ER) | payer MEDICAID ==
[2025-02-12] MEDS: Aspirin 81 MG Tab.Chew PO ONE (14:35)
[2025-02-12] MEDS: Nitroglycerin 0.4 MG Tab.SL SL PRN (14:40)
[2025-02-12] MEDS: Metoprolol Tartrate 5 MG/5 ML SDV IVPUSH ONE (14:40)
[2025-02-12 15:05] LABS: BASOPHILS ABSOLUTE AUTO 0.03 K/uL (0.02-0.10); BASOPHILS PERCENT AUTO 0.3 % (0.0-0.5); HEMATOCRIT 40.1 % (37.0-47.0); HEMOGLOBIN 13.6 g/dL (11.5-16.5); LYMPHOCYTES ABSOLUTE AUTO 2.23 K/uL (1.50-4.00); LYMPHOCYTES PERCENT AUTO 22.8 % (20.0-40.0); MEAN CORPUSCULAR HEMOGLOBIN 30.3 pg (27.0-32.0); MEAN CORPUSCULAR HGB CONC 33.9 g/dL (31.0-35.0); MEAN CORPUSCULAR VOLUME 89 fL (76-96); MEAN PLATELET VOLUME 10.2 fL (6.0-10.0); MONOCYTES ABSOLUTE AUTO 0.45 K/uL (0.20-0.80); MONOCYTES PERCENT AUTO 4.6 % (3.0-10.0); NEUTROPHILS ABSOLUTE AUTO 6.99 K/uL (2.00-7.50); NEUTROPHILS PERCENT AUTO 71.3 % (45.0-70.0); PLATELET COUNT,PLT 249 K/uL (150-500); RED BLOOD CELL COUNT 4.49 M/uL (3.80-5.80); RED CELL DISTRIBUTION WIDTH 13.6 % (11.0-16.0); WHITE BLOOD CELL COUNT,WBC 9.8 K/uL (4.0-11.0)
[2025-02-12 15:18] LABS: INR 0.9 (1.0-3.5); PTT,PARTIAL THROMBOPLSTIN TIME 25.8 SECONDS (24.4-33.2)
[2025-02-12 15:19] LABS: PROTHROMBIN TIME 9.9 sec (9.0-11.5)
[2025-02-12 15:24] LABS: A/G RATIO 0.9 (0.8-2.0); ALBUMIN 3.4 g/dL (3.4-5.0); ANION GAP 11.8 mmol/L (5.0-15.0); BILIRUBIN TOTAL 0.7 mg/dL (0.0-1.0); BUN/CREATININE RATIO 12.9 (6-25); CALCIUM 8.8 mg/dL (8.5-10.1); CREATININE 0.85 mg/dL (0.55-1.02); EST CRCL DRUG DOSING (CG) 66.39 mL/min; POTASSIUM,K 3.8 mmol/L (3.5-5.1); PROTEIN TOTAL,TP 7.1 g/dL (6.4-8.2)
[2025-02-12] MEDS: Metoprolol Tartrate 5 MG/5 ML SDV IVPUSH SCH (15:33)
[2025-02-12] MEDS: Furosemide 40 MG/4 ML VIAL IVPUSH ONE (15:46)
[2025-02-12] MEDS: Nitroglycerin/D5W 25 MG/250 ML BOTTLE IV SCH (15:57)
[2025-02-12] MEDS: LORazepam 2 MG/ML SDV IVPUSH ONE (16:50)
[2025-02-12 16:58] LABS: APPEARANCE,URINE CLEAR (CLEAR); BILIRUBIN,URINE NEGATIVE (NEGATIVE); COLOR,URINE YELLOW; GLUCOSE,URINE NEGATIVE (NEGATIVE); KETONES,URINE NEGATIVE (NEGATIVE); NITRITE,URINE NEGATIVE (NEGATIVE); OCCULT BLOOD,URINE NEGATIVE (NEGATIVE); PROTEIN,URINE NEGATIVE (NEGATIVE); UROBILINOGEN,URINE 0.2 E.U./dL (0.2-1.0)
[2025-02-12 16:59] LABS: LEUKOCYTE ESTERASE,URINE NEGATIVE (NEGATIVE)
[2025-02-12 20:28] VITALS: BP 161/92; PULSE 90
== END 2025-02-12 17:50 ==
LOC: LB.ED 14:22
DX: I11.0 Hypertensive heart disease with heart failure (principal); I50.1 Left ventricular failure, unspecified; Z91.048 Other nonmedicinal substance allergy status; Z79.82 Long term (current) use of aspirin; Z91.030 Bee allergy status; Z79.899 Other long term (current) drug therapy; Z87.891 Personal history of nicotine dependence
CPT/HCPCS: 36415; 71045; 80053; 81003; 83880; 84484; 85025; 85379; 85610; 85730; 93005; 96365; 96366; 96375; 99285-25; A9270-GY; J1940; J2060; J2305; J3490

== ENCOUNTER 2025-09-09 20:29 | Emergency (ER) | payer MEDICAID ==
[2025-09-09] MEDS: Ketorolac 15 MG/ML SDV IM ONE ×2 (20:51→20:52)
[2025-09-09] MEDS: Ketorolac 30 MG/ML SDV ONE (20:53)
[2025-09-09] MEDS ORDERED: Acetaminophen/HYDROcodone 325-5 MG Tab ONE (21:00)
[2025-09-09 23:08] VITALS: PULSE 92
[2025-09-09 23:21] VITALS: BP 198/98
== END 2025-09-09 21:38 | disposition home or self-care (01) ==
LOC: LB.ED 20:29
DX: S93.491A Sprain of other ligament of right ankle, initial encounter (principal); I10 Essential (primary) hypertension; E66.9 Obesity, unspecified; Z79.899 Other long term (current) drug therapy; Z91.030 Bee allergy status; Z68.42 Body mass index [BMI] 45.0-49.9, adult; Z91.048 Other nonmedicinal substance allergy status; X50.1XXA Overexertion from prolonged static or awkward postures, initial encounter
CPT/HCPCS: 73600-RT; 73630-RT; 96372; 99283; A9270-GY; J1885